=== PATIENT | female | born 2000 | race Asian ===

== ENCOUNTER 2020-09-30 05:06 | Emergency (ER) | payer OTHER ==
[~2020-09-30] VITALS: Ht 162.6 cm; Wt 60.8 kg
[2020-09-30 05:07] VITALS: TEMP 96.7
[2020-09-30 05:47] LABS: PLATELET COUNT 281 K/uL (152-353)
[2020-09-30 08:00] VITALS: BP 114/68
== END 2020-09-30 08:15 | disposition home or self-care (01) ==
LOC: ED 05:06
PROVIDERS: Hospitalist
DX: R10.84 Generalized abdominal pain (principal); F19.139 Other psychoactive substance abuse with withdrawal, unspecified; R11.2 Nausea with vomiting, unspecified
CPT/HCPCS: 36415; 80053; 80307; 80320; 81000; 81025; 82150; 83690; 85027; 96360; 96375; 96376; 99284; J1885; J2405; J3410

== ENCOUNTER 2021-12-18 00:48 | Emergency (ER) | payer OTHER ==
[~2021-12-18] VITALS: Ht 162.6 cm; Wt 59.0 kg
[2021-12-18 01:31] LABS: PLATELET COUNT 386 K/uL (152-353)
[2021-12-18 01:55] LABS: POTASSIUM 3.1 mmol/L (3.6-5.2)
[2021-12-18 01:59] LABS: PARTIAL THROMBOPLASTIN TIME 23.9 SECONDS (24.5-33.6)
[2021-12-18] MEDS ORDERED: METR250T19 PO (05:10)
[2021-12-18] MEDS ORDERED: ONDA4TAB3 PO ×2 (05:10→05:12)
[2021-12-18 06:30] VITALS: BP 113/76; TEMP 98.5
== END 2021-12-18 06:35 | disposition home or self-care (01) ==
LOC: ED 00:48
PROVIDERS: Emergency Medicine
DX: N83.291 Other ovarian cyst, right side (principal); A59.8 Trichomoniasis of other sites; F11.21 Opioid dependence, in remission; E87.6 Hypokalemia; F17.210 Nicotine dependence, cigarettes, uncomplicated
CPT/HCPCS: 36415; 80053; 80143; 80179; 80307; 80320; 81002; 81015; 81025; 82150; 82550; 83690; 84484; 85027; 85610; 85730; 87077; 87086; 87088; 87185; 93005; 96372; 96374; 96375; 99284; J1885; J2405; J2550; J3490; Q9963